=== PATIENT | female | born 1955 | race Caucasian/White ===

== ENCOUNTER 2018-01-23 07:38 | Day surgery (SDC) | payer OTHER ==
[2018-01-23] MEDS ORDERED: LIDOCAINE 100 MG SYRINGE (09:06)
[2018-01-23] MEDS ORDERED: PROPOFOL 40 ML (09:06)
== END 2018-01-23 11:32 | disposition home or self-care (01) ==
LOC: GIL 07:38
DX: Z12.11 Encounter for screening for malignant neoplasm of colon (principal); K64.4 Residual hemorrhoidal skin tags; E03.9 Hypothyroidism, unspecified
CPT/HCPCS: 45378